=== PATIENT | female | born 1945 | race Caucasian/White ===

== ENCOUNTER 2020-01-01 13:00 | Outpatient (RCR) | payer MEDICARE, OTHER, SELFPAY ==
[2019-04-04 11:40] VITALS: BMI 24.0
--- NOTE | 2019-12-16 12:40 | HP.PTEVAL ---
Patient's Visit Information TABATHA DIAZ is a 74 year old F referred to Physical Therapy by Dr. Anaid Sullivan DC with a diagnosis of SEGMENTAL SOMATIC DYSFUNCTION OF LUMBA,FACET ARTHRITIS OF LUMBAR. Date of Evaluation: 12/16/19 Physical Therapist: Mervin Katz, PT, Cert MDT, OCS - Visit Plan Frequency: 2x /Week Duration: 4 Weeks Plan: PT INTERVENTIONS POSTURAL EX'S,DLS ABD/BACK,LUMBAR ROM,LE STRENGTRENING. TO DEVELOP HEP - Subjective This 74 y/o female presents to physical therapy with lumbar pain.Patient injuried back middle of September 29 lifting grill on deck. Then symptoms gradually got worse throughout the day. Seen Chiropractor . Symptoms located symmtrical lumbar today. Symptoms became worse in left leg and has some parathesia below left knee . Aggraveting factors walking ,standing,lifting and bending.Symptoms better with sitting and resting.Patient sleeping good. Bowel/bladder-. Coughing/sneezing -. Patient c/o of left lower leg parathesia.Patient back feels weak . Patient symptoms affects ADL's ,housewok tasks and function. Patient symptoms affects QOL. SOCIAL: . VOCATION: retired - Pain Bilateral Back Pain Intensity (Out of 10): 5 Pain Intensity Range: 10 - Objective POSTURE:mild foward posture. GAIT: reciprocal pattern mild foward posture slow brian. PALAPTION: tender paraspinals. NEURO: C/O parathesia tingling left lower leg ,reflexes L3-4,L4-5,L5-S1. LUMBAR ROM: flexion WFL,extension min loss,side glides min loss. FLEXABLITY: hams WFL. MUSCULAR ENDURANCE TESTING: poor unable to hold - Special Tests L/S Slump test left side: Negative L/S Slump test right side: Negative L/S Left Straight Leg Raise: Negative L/S Right Straight Leg Raise: Negative Lumbar Standing: Flexion - Mechanical Response: No effect Lumbar Standing: Flexion - Symptoms During Testing: No effect Lumbar Standing: Flexion - Symptoms After Testing: No effect Lumbar Standing: Extension - Mechanical Response: No effect Lumbar Standing: Extension - Symptoms During Testing: No effect Lumbar Standing: Extension - Symptoms After Testing: No effect Lumbar Standing: Right Side Glides - Mechanical Response: No effect Lumbar Standing: Right Side [place] - Symptoms During Testing: No effect Lumbar Standing: Right Side [place] - Symptoms After Testing: No effect Lumbar Standing: Left Side [place] - Mechanical Response: No effect Lumbar Standing: Left Side [place] - Symptoms During Testing: No effect Lumbar Standing: Left Side [place] - Symptoms After Testing: No effect - Goals Goal 1:: I with HEP Goal Time Frame: 4-6 Weeks Goal 2:: Decrease LBP by 50 % or > to improve function witj ADL's Goal Time Frame: 4-6 Weeks Goal 3:: Improve lumbar ROM for function of recovery Goal Time Frame: 4-6 Weeks Goal 4:: Patient to improve back owestry score by 5 points or> to improve function and QOL. Goal Time Frame: 4-6 Weeks Goal 5:: Patient able to walk and stand t perform ADLS' and hoisework tasks with min limitatons. Goal Time Frame: 4-6 Weeks - Rehabilitation Potential Physical Therapy Diagnosis: This patient has lumbar pain with radicular symptoms with weakness ,difficulty after flexion with weakness,pain with walking and standing affects ADLS' and decrease posture thus benifit from skilled PT Rehabilitation Potential: Good - Anticipated Interventions Patient/Client Instruction: Educate patient on: Condition, Plan of Care For the Purpose of:: To decrease pain, To improve nutrient delivery to tissue, To improve muscle performance and motor function, To increase tolerance to activity/condition/position, To improve ability of physical actions for home/community/work/leisure, To improve health of tissue, To decrease soft tissue restriction, To increase flexibility/ROM, To reduce risk of recurrence, To improve ability to perform tasks related to life management Therapeutic Exercise to Include: Strength training, Endurance training, Postural training, Flexibilty training, Active ROM, Dynamic Lumbar Stabilization For the Purpose of:: To decrease pain, To increase ROM, To improve muscle performance and motor function, To improve ability to perform ADL's, To increase tolerance to activity/condition/position, To improve performance and independence with ADL's, To improve ability of physical actions for home/community/work/leisure, To improve health of tissue, To decrease soft tissue restriction, To improve ability to perform tasks related to life management TENS: Yes IF ES: Yes Cryotherapy (ice pack, ice massage): Yes Thermo therapy (hot pack): Yes Ultrasound (thermal/non thermal): Yes For the Purpose of:: To decrease pain, To increase ROM, To improve nutrient delivery to tissue, To increase oxygenation perfusion, To improve health of tissue, To decrease soft tissue restriction Thank you for the opportunity to evaluate your patient. For Medicare and Medicare HMO plans, please review the plan of care and approve it. It will need to be FAXED BACK to us at [phone] for Medicare purposes. For Medicare only, by signing this I certify the plan of care. Please let me know if there are questions or concerns regarding this plan of care. Physician Signature: Date:
--- NOTE | 2020-03-04 09:49 | HP.PT.NRP ---
TABATHA DIAZ was seen in my office for initial evaluation on 12/16/19. The following Plan of Care was established for this patient: Initial Frequency: 2x /Week Initial Duration: 4 Weeks Patient/Client Instruction: Educate patient on: Condition, Plan of Care For the Purpose of:: To decrease pain, To improve nutrient delivery to tissue, To improve muscle performance and motor function, To increase tolerance to activity/condition/position, To improve ability of physical actions for home/community/work/leisure, To improve health of tissue, To decrease soft tissue restriction, To increase flexibility/ROM, To reduce risk of recurrence, To improve ability to perform tasks related to life management Therapeutic Exercise to Include: Strength training, Endurance training, Postural training, Flexibilty training, Active ROM, Dynamic Lumbar Stabilization For the Purpose of:: To decrease pain, To increase ROM, To improve muscle performance and motor function, To improve ability to perform ADL's, To increase tolerance to activity/condition/position, To improve performance and independence with ADL's, To improve ability of physical actions for home/community/work/leisure, To improve health of tissue, To decrease soft tissue restriction, To improve ability to perform tasks related to life management TENS: Yes IF ES: Yes Cryotherapy (ice pack, ice massage): Yes Thermo therapy (hot pack): Yes Ultrasound (thermal/non thermal): Yes For the Purpose of:: To decrease pain, To increase ROM, To improve nutrient delivery to tissue, To increase oxygenation perfusion, To improve health of tissue, To decrease soft tissue restriction This patient was last seen in our office . Pertinent comments regarding their Physical therapy will appear below: Patients seen for PT for back pain for HEP,THUS IS D/C At this point I will be discontinuing this patient from physical therapy. I would be happy to see this patient again in the future if found appropriate by the physician. Thank you! Mervin Katz, PT, Cert MDT, OCS
== END 2020-01-01 19:00 | disposition home or self-care (01) ==
LOC: PT 13:00
PROVIDERS: PCP Student in an Organized Health Care Education/Training Program; Referring Provider Chiropractor; Visit Provider Chiropractor
DX: M99.03 Segmental and somatic dysfunction of lumbar region (principal); M46.96 Unspecified inflammatory spondylopathy, lumbar region
CPT/HCPCS: 97035; 97110; 97162; 97530

== ENCOUNTER 2020-01-15 12:05 | Emergency (ER) | payer MEDICARE, OTHER, SELFPAY ==
[2019-04-04 11:40] VITALS: BMI 24.0
[2020-01-15] VITALS (7 sets, daily range): BP systolic 119–153; BP diastolic 61–88; PULSE 85–97; RESP 15–20; TEMP 36.1–36.7; O2SAT 95–99; BMI 24.7
--- NOTE | 2020-01-15 | FLU_PTH ---
PATIENT: TABATHA DIAZ LOC: ED U#:[id number] AGE/SX: 74/F ROOM: RE01/15/[address]: Dr. Vasquez Alas MD : 1945 BED: DIS: 01/15/2020 SPEC #: [id number] RECD: 01/15/20 14:57 STATUS: JARVIS REDotty #: [id number] DURGA: 01/15/20 00:[address]: Vasquez Alas DEPT: CYTOLOGY RECD BY: Luis F Gibbs ENTERED: 01/16/20 08:13 SP TYPE: Fluid OTHR DR: MD Dr. Hudson Orona, DO Tissues: THORACIC FLUID Procedures: Special Stain Group II Surgery Specimen Level IV Cytospin Fluid HEADER OPERATION: Ultrasound-guided right thoracentesis PRE-OP DIAGNOSIS: Cough, SOB TISSUE SUBMITTED: Thoracentesis fluid for cytology DIAGNOSIS CYTOLOGY Thoracentesis fluid for cytology (cytospins and cell block): Positive for malignant cells, consistent with breast primary. LEENA:enoc 01/17/20 COMMENT Immunohistochemistry ([id number]) supports the above diagnosis. . Please make reference to previous specimen ([id number]) left breast and axillary content, modified radical mastectomy with diagnosis of invasive poorly differentiated ductal carcinoma. Case has been reviewed in consultation with Dr. Buenrostro who concurs with the above diagnosis. IDC:SJ CYTOLOGY STUDY Slides are reviewed. CYTOLOGY GROSS Received is 70 ml of yellow cloudy fluid labeled with the patient's name and and designated per the requisition as thoracentesis. Submitted for cytology preparation including cell block. / Sariah 01/16/20 TC:0 CPT: 01531, 38671
--- NOTE | 2020-01-15 | IMM_PTH ---
PATIENT: TABATHA DIAZ LOC: ED U#:[id number] AGE/SX: 74/F ROOM: RE01/15/[address]: Dr. Vasquez Alas MD : 1945 BED: DIS: 01/15/2020 SPEC #: [id number] RECD: 01/17/20 09:44 STATUS: JARVIS REQ #: [id number] DURGA: 01/15/20 00:[address]: Vasquez Alas DEPT: IMMUNOHISTOCHEMISTRY RECD BY: Miya Rice ENTERED: 01/17/20 09:46 SP TYPE: IMMUNO OTHR DR: MD Dr. Hudson Orona, DO Tissues: THORACIC FLUID Procedures: RCC (add) NAPSIN A (add) Karthik Ret (add) CK20 (add) CK5-6 (add) CK7 (add) CK8 (add) SHAIKH-2 (add) E-CAD (add) HEP PAR (add) HER2 MARTINA (add) MACRO (add) MAMM (add) OH (add) TTF1 (add) Vimentin (add) Pankeratin (add) GATA3 (add) P40 (add) CDX2 (add) ER (initial) PHYSICIAN & INSTITUTION [place] [id number] SPECIMEN INFORMATION: Tissue Source: Thoracentesis fluid Clinical Info: CLIFTON Carreno Specimen Number: [id number] CPT code: 74407, 42559 x17, 75116 x3 METHODOLOGY: Deparaffinized sections of prefer/formalin-fixed tissue or PAP/DQ stained slides are incubated with monoclonal/polyclonal antibodies/oligonucleotide probes. Localization is made via biotin free immunoperoxidase method. Appropriate controls are performed and reacted as expected. Results on target cell population are indicated in the following table: RESULTS: ANTIBODY / CLONE RESULT ER (6F11) positive OH (1E2) negative Her-2neu (CB11) negative E-Cad (ECH-6) positive Mammaglobin (31A5) negative GATA3 (L50-823) positive AE1-3 (AE1/AE3/PCK26) positive CK7 (OV-TL12/30) positive CK8 (19wnbuA37) positive CK20 (KS20.8) negative SHAIKH-2 (SP21) positive CDX2 (TZU1861V) negative Vimentin (V9) negative Macro (HAM-56) negative TTF-1 (8G7G3/1) negative Napsin A (Rabbit Polyclonal) negative HepPar (OCh1E5) negative RCC (PN-15) negative CALRET (polyclonal) negative CK5-6 (D5 & 1684) negative P40 (BC28) negative These tests were developed and their performance characteristics determined by [facility]. They may not have been cleared or approved by the U.S. Food and Drug Administration. The FDA has determined that such clearance or approval is not necessary. The above immunohistochemical/dualISH markers are ordered and reviewed by the Pathologist. INTERPRETATION: Thoracentesis fluid: Metastatic carcinoma consistent with breast primary. AM:enoc 01/20/20
--- NOTE | 2020-01-15 12:23 | EKG12_ITS ---
Test Reason : Blood Pressure : / mmHG Vent. Rate : 089 BPM Atrial Rate : 089 BPM P-R Int : 126 ms QRS Dur : 072 ms QT Int : 372 ms P-R-T Axes : 053 042 027 degrees QTc Int : 452 ms Normal sinus rhythm Normal ECG Confirmed by TALI THOMAS, TICO ([id number]), scientific editor DORIS FLOREZ ([id number]) on 01/17/2020 1:58:57 PM Referred By: LINDA Confirmed By:NISREEN CESAR MD
--- NOTE | 2020-01-15 12:23 | RAD_ITS ---
STUDY: X-RAY CHEST REASON FOR EXAM: Female, 74 years old. COUGH, SOB TECHNIQUE: Single AP portable view of the chest. COMPARISON: None. FINDINGS: EKG electrodes are seen. Surgical clips are seen in the left axillary region. Prior left mastectomy. Moderate sized right pleural effusion with right basilar atelectasis and/or infiltration. Normal size heart. Normal mediastinum and landon. Normal visualized pulmonary arteries. There is atherosclerotic tortuosity of the aortic arch and descending thoracic aorta. Normal visualized thoracic spine. Normal visualized ribs, clavicles, and shoulders. There is no demonstrated abnormality of the visualized soft tissue structures of the upper abdomen. RAD/Chest 1 View (Portable) IMPRESSION: Moderate size right pleural effusion with right basilar atelectasis and/or infiltrate. Electronically Signed: Willi Du, at 13:24 EST , Service support ,
[2020-01-15 12:44] LABS: Absolute Lymphocyte Count 1.12 X10^3/uL (0.83-4.51); Absolute Neutrophil Count 4.6 X10^3/uL (2.0-7.7); Basophil# 0.03 X10^3/uL; Basophil% 0.5 % (0-1); Eosinophil# 0.06 X10^3/uL; Eosinophils% 0.9 % (0-5); Hematocrit 48.4 % (37-47); Hemoglobin 15.9 g/dL (12.0-15.0); Lymphocyte # 1.12 X10^3/ul (4.0); Lymphocyte % 17.3 % (19-41); Mean Corp Hgb Conc 32.9 g/dL (32-36); Mean Corpuscular Hgb 31.2 pg (27.0-32.0); Mean Corpuscular Volume 94.9 fL (81-99); Mean Platelet Vol. 9.3 fl (6.2-12.0); Monocyte% 9.3 % (0-10); NRBC Flagged by Analyzer 0 % (0-5); Neutrophil # 4.64 X10^3/uL (2.7-7.7); Neutrophil % 71.5 % (47-70); Platelet Count 354 K/mm3 (150-450); RBC Distribution Width CV 12.4 % (11.6-14.6); RBC Distribution Width SD 43.1 fl (35.1-43.9); White Blood Count 6.5 K/mm3 (4.4-11.0)
[2020-01-15 13:02] LABS: Anion Gap 8 (5-15); BUN 17 mg/dL (7-18); BUN/Creat Ratio 13.6 RATIO (10-20); Calcium,Total 9.8 mg/dL (8.5-10.1); Chloride 108 mmol/L (98-107); Creatinine, Serum 1.25 mg/dL (0.55-1.02); EST Glomerular Filtration Rate 45 mL/min (>60); Est Glom Filt Rate - Afr Amer 54 mL/min (>60); Estimated Creatinine Clearance 28.79 ml/min; Glucose 111 mg/dL (74-106); Potassium 3.9 mmol/L (3.5-5.1); Sodium Level 141 mmol/L (136-145)
[2020-01-15 13:05] LABS: D-Dimer Quantitative (DVT/PE) 1.55 FEU/ug/m (0.27-0.49)
--- NOTE | 2020-01-15 13:06 | CT_ITS ---
STUDY: CTA CHEST REASON FOR EXAM: Female, 74 years old. Worsening SOB and amp; cough x 3 weeks, prior left lumpectomy 8 years ago. RADIATION DOSAGE (If Supplied By Facility): CTDIvol = ( 5.16 ) mGy, DLP = ( 209.76 ) mGycm TECHNIQUE: The examination was performed with the intravenous administration of IV 75mL Isovue-370. Post-processing of the angiographic images was performed, with multiplanar reformation and 3D reconstruction. Individualized dose optimization techniques were used for this CT. COMPARISON: None. FINDINGS: Status post left mastectomy. Surgical clips are seen in the left axillary region. Normal enhancement of the main pulmonary artery and right and left pulmonary arteries. Normal enhancement of the bilateral peripheral pulmonary arteries. There is no demonstrated pulmonary embolism. Normal thoracic aorta and visualized great vessels. There is no demonstrated aortic dissection. Normal heart and pericardium. Normal mediastinum. Normal hilar regions. Normal visualized trachea and bronchi. Volume loss in the right hemithorax. Moderate sized right effusion with compressive atelectasis and volume loss in the right lower lobe. Minimal degree of left basilar atelectasis. Normal chest wall structures. There are degenerative changes of thoracic spine. Increased kyphosis. Mild loss of height of a lower dorsal vertebrae. Normal visualized upper abdomen. CT/CTA Chest W/WO Contrast IMPRESSION: Moderate sized right pleural effusion with compressive atelectasis and volume loss of the right lower lobe. No evidence of pulmonary embolism. Electronically Signed: Willi Du, at 13:43 EST , Service support ,
--- NOTE | 2020-01-15 14:11 | US_ITS ---
PROCEDURE: ULTRASOUND GUIDED THORACENTESIS. DATE: 01/15/2020.. INDICATION: Female, 74 years old. Right pleural effusion. PHYSICIAN: Willi Du M.D. PROCEDURE: The risks, benefits, and alternatives to the procedure were explained to the patient. The specific risks of bleeding, infection, and pneumothorax requiring chest tube insertion were discussed and accepted. Written informed consent was obtained. Ultrasonographic evaluation of the right lower pleural space was carried out. An adequate pocket was identified. The patient was placed in the sitting, upright position. The overlying skin was prepped and draped in sterile fashion. 1% lidocaine was administered subcutaneously for local anesthesia. Under ultrasound guidance, a 5French thoracentesis needle/catheter system was advanced into the right posterior lower pleural fluid collection. Approximately 1300 mL of venus-colored fluid was drained. The catheter was removed, and a sterile dressing was applied. A specimen was collected and sent to the laboratory for analysis, as requested by the referring clinician. The patient tolerated the procedure well. A chest x-ray was ordered. US/Thoracentesis W US IMPRESSION: Ultrasound-guided right thoracentesis. Electronically Signed: Willi Du, at 15:22 EST , Service support ,
[2020-01-15 14:13] LABS: ALB/GLOB Ratio 0.9 RATIO (0.9-2.4); Globulin 4.1 g/dL (2.2-4.2); LDH 247 U/L (84-246); Protein, Total 7.9 g/dL (6.4-8.2)
--- NOTE | 2020-01-15 14:30 | ED.VISSUMM ---
- ER Visit Summary Date of Service: 01/15/20 Chief Complaint: Shortness of breath History of Present Illness: The patient is a [address] Chand and Dr. Hoyt. She has a history of breast cancer in the distant past. Reports she has had increasing shortness of breath over the past 3 weeks. She has a cough is productive of a small amount of sputum. Reports her shortness of breath is mild currently and moderate with exertion. She denies any chest pain. No fever or chills. Patient does report that she was in contact with her granddaughter last week and tested positive for Covid. However, her symptoms regarding her cough actually seem to be improving rather than worsening. Physical Examination: Vitals: Stable. Afebrile. General: Well-nourished and well-developed. Head: Normocephalic atraumatic. Neck: Supple, no lymphadenopathy. No JVD. Nontender. Cardiovascular: Regular rate and rhythm. No murmurs. Respiratory: No respiratory distress. Clear to auscultation bilaterally. Abdominal: Soft, nontender, nondistended, normal bowel sounds. No guarding, rebound, or peritoneal signs. Back: Nontender. Extremities: Nontender, no edema. Skin: Normal color, no rash. Neurologic: Alert and oriented ?3. Cranial nerves II through XII are intact. Normal strength and sensation. Psych: Normal affect. Test Results: EKG is sinus at 89 with no acute changes. Troponin is negative. D-dimer is 1.55. 7 shows a chloride of 108, creatinine 1.25, glucose 111. CBC shows an H&H of 15.9 and 40.4, segmented for 72 lymphocytes of 17. COVID-19 is negative. Clinical Impression(s) from Imaging Studies Chest X-Ray 01/15/20 12:23 IMPRESSION: Moderate size right pleural effusion with right basilar atelectasis and/or infiltrate. Electronically Signed: Willi Du, at 13:24 EST , Service support , Chest CTA 01/15/20 13:06 IMPRESSION: Moderate sized right pleural effusion with compressive atelectasis and volume loss of the right lower lobe. No evidence of pulmonary embolism. Electronically Signed: Willi Du, at 13:43 EST , Service support , Emergency Department Course and Treatment: Patient had ultrasound-guided thoracentesis performed by Dr. Corona over in radiology. She is resting comfortably after this. The fluid was sent for evaluation. Treatment Plan: Patient will be discharged instructions follow-up Dr. Hoyt and/or Dr. Corona tomorrow for the results of her thoracentesis fluid. Return to the emergency department for any worsening symptoms. Disposition: To home in improved and stable condition. Impression: 1. Right pleural effusion. 2. Thoracentesis by radiologist. This note was generated with [employer] dictation software. It may contain incorrect words, spelling, and punctuation that were not noted in review of the chart prior to signing ED Disposition - Plan for ED Patient: Instructions: ED Pleural Effusion, Thoracentesis Referrals: Hudson Hoyt DO [Primary Care Provider] - 1 Day Dorian Corona DO [STAFF PHYSICIAN] - 1 Day
--- NOTE | 2020-01-15 14:48 | RAD_ITS ---
STUDY: X-RAY CHEST REASON FOR EXAM: Female, 74 years old. Immediate post thora TECHNIQUE: AP inspiration and expiration views. COMPARISON: Comparison is made with prior study done earlier today at 12:57 PM. FINDINGS: The patient is status post right thoracentesis. No evidence of pneumothorax. Residual right pleural parenchymal changes. RAD/Chest Insp/Exp 2 View IMPRESSION: Status post right thoracentesis. There is no evidence of pneumothorax. Residual right pleural parenchymal changes. Electronically Signed: Willi Du, at 15:10 EST , Service support ,
[2020-01-15 14:55] LABS: Cytology, Body Fluid / CSF SEE PATHOLOGY REPORT
[2020-01-15 15:46] LABS: Body Fluid Mononuclear WBC # 0.916 10^3/uL; Body Fluid Mononuclear WBC % 97.9 %; Body Fluid Polynuclear WBC # 0.019 10^3/uL; Body Fluid Polynuclear WBC % 2.1 %; Body Fluid Total Cells Counted 1.084 10^3/ul; White Blood Count/Body Fluid 0.935 10^3/uL
[2020-01-15] MEDS: Lidocaine 2% (20 ml mdv) 20 ML Vial (15:51)
[2020-01-15 15:52] LABS: Auto B Fluid Analyzer BKGD Ct COUNTS W/IN LIMITS (W/IN LIMITS); Source- Body Fluid THORACENTESIS
[2020-01-15 15:53] LABS: Appearance/Body Fluid SL CLDY; Color/Body Fluid YELLOW
[2020-01-15 16:28] LABS: Red Cell Count/Body Fluid 1070 /mm3
[2020-01-15 16:39] LABS: Glucose, Body Fluid 97 mg/dL (40-70); LDH,Body Fluid 228 Units/l (Not Establ.); Protein, Body Fluid 4.9 g/dL (Not Establ.)
[2020-01-15 16:54] LABS: Lymphocytes 9 %; Mesothelial Cells 74 %; Neutrophil (Segs) 1 %
[2020-01-15 17:05] LABS: Macrophages 13 %; Monocytes 3 %
[2020-01-15 17:08] LABS: Body Fluid QC Type(s) BF5Q
[2020-01-17 11:26] LABS: Pathologist Comment/Body Fluid Reviewed
[2020-01-20 04:15] LABS: pH, Body Fluid 11254 7.3 (Not Estab.)
== END 2020-01-15 15:52 | disposition home or self-care (01) ==
PROVIDERS: Emergency Provider Emergency Medicine; PCP Student in an Organized Health Care Education/Training Program
DX: J90 Pleural effusion, not elsewhere classified (principal); Z20.828 Contact with and (suspected) exposure to other viral communicable diseases; Z85.3 Personal history of malignant neoplasm of breast
CPT/HCPCS: 32555; 71045; 71046; 71275; 80048; 82945; 83615; 83986; 84156; 84157; 84484; 85025; 85379; 87070; 87075; 87205; 87426; 88108; 88305; 88313; 88341; 88342; 89050; 93005; 99284; Q9967; A4216

== ENCOUNTER → 2020-02-10 14:13 | Outpatient (CLI) | payer MEDICARE, OTHER, SELFPAY ==
--- NOTE | 2020-02-10 14:15 | US_ITS ---
PROCEDURE: ULTRASOUND GUIDED THORACENTESIS -- RIGHT SIDE CLINICAL HISTORY: Female, 74 years old. Right pleural effusion CONSENT: The risks, benefits and alternatives to the procedure were explained to the patient, and the patient agreed to the procedure and signed the consent. STERILE BARRIER TECHNIQUE: The following sterile barrier precautions were used during the procedure: hand hygiene; use of 2% chlorhexidine aseptic; use of a cap, mask, sterile gown, sterile gloves, sterile full body drape, and a large sterile sheet. SEDATION: Local anesthesia TECHNIQUE: Under the ultrasound guidance using all elements of maximum sterile technique and after infiltration of the skin and subcutaneous soft tissues with 10 mL of lidocaine 1% a 5 Dutch drainage catheter is introduced in the lower part of the right hemithorax. 1000 mL of fluid were removed sample sent to lab for evaluation. The patient tolerated the procedure there was no immediate complication. US/Thoracentesis W US IMPRESSION: Successful ultrasound-guided thoracentesis. Electronically Signed: Cristy Romo, at 11:14 EST Tel , Service support ,
[2020-02-10 14:35] VITALS: BP 115/55; BP 134/61; BP 139/69; BP 151/78; PULSE 87; PULSE 95; PULSE 96; PULSE 97; RESP 16; RESP 18; O2SAT 97; O2SAT 98; O2SAT 99
--- NOTE | 2020-02-10 14:35 | RAD_ITS ---
STUDY: X-RAY CHEST REASON FOR EXAM: Female, 74 years old. Immediate post thora TECHNIQUE: Single AP portable view of the chest. COMPARISON: None. FINDINGS: Compressive atelectasis in the right lung base. There is moderate size right pleural effusion. There is no evidence of pneumothorax. Normal size heart. Normal mediastinum and landon. Normal visualized pulmonary arteries. Normal visualized aortic arch and descending thoracic aorta. There is a levoscoliosis of the thoracic spine. Normal visualized ribs, clavicles, and shoulders. There is no demonstrated abnormality of the visualized soft tissue structures of the upper abdomen. RAD/Chest Insp/Exp 2 View IMPRESSION: There is moderate size right pleural effusion. There is no evidence of pneumothorax. Electronically Signed: Cristy Romo, at 15:47 EST Tel , Service support ,
== END ==
PROVIDERS: PCP Student in an Organized Health Care Education/Training Program; Referring Provider Nurse Practitioner; Visit Provider Nurse Practitioner
DX: J90 Pleural effusion, not elsewhere classified (principal)
CPT/HCPCS: 32555; 71046

== ENCOUNTER 2021-04-01 12:14 | Outpatient (CLI) | payer MEDICARE, OTHER, SELFPAY | END 2021-04-01 23:59 | disposition home or self-care (01) | PROVIDERS: PCP Student in an Organized Health Care Education/Training Program; Visit Provider Internal Medicine Hematology & Oncology | DX: C50.919 Malignant neoplasm of unspecified site of unspecified female breast (principal); C79.51 Secondary malignant neoplasm of bone ==

== ENCOUNTER → 2021-08-02 | Outpatient (CLI) | payer MEDICARE, OTHER, SELFPAY ==
[2021-08-02 13:24] LABS: ALB/GLOB Ratio 1.2 RATIO (0.9-2.4); AST(SGOT) 20 U/L (15-37); Alanine Aminotransfer ALT/SGPT 24 U/L (13-56); Albumin, Serum 3.7 g/dL (3.2-5.0); Alkaline Phosphatase 69 U/L (45-117); Anion Gap 5 (5-15); BUN 13 mg/dL (7-18); BUN/Creat Ratio 13.6 RATIO (10-20); Calcium,Total 9.4 mg/dL (8.5-10.1); Chloride 110 mmol/L (98-107); Creatinine, Serum 0.95 mg/dL (0.55-1.02); EST Glomerular Filtration Rate 61 mL/min (>60); Est Glom Filt Rate - Afr Amer 74 mL/min (>60); Globulin 3.2 g/dL (2.2-4.2); Glucose 92 mg/dL (74-106); Potassium 4.1 mmol/L (3.5-5.1); Protein, Total 6.9 g/dL (6.4-8.2); Sodium Level 142 mmol/L (136-145)
== END | disposition home or self-care (01) ==
LOC: LABSPEC 12:41
PROVIDERS: PCP Student in an Organized Health Care Education/Training Program; Referring Provider Internal Medicine Hematology & Oncology; Visit Provider Internal Medicine Hematology & Oncology
DX: C50.812 Malignant neoplasm of overlapping sites of left female breast (principal); C79.51 Secondary malignant neoplasm of bone; C50.012 Malignant neoplasm of nipple and areola, left female breast; J91.0 Malignant pleural effusion; Z17.0 Estrogen receptor positive status [ER+]
CPT/HCPCS: 80053

== ENCOUNTER → 2024-03-04 | Outpatient (CLI) | payer MEDICARE, OTHER, SELFPAY | END | disposition home or self-care (01) | PROVIDERS: PCP Student in an Organized Health Care Education/Training Program; Referring Provider Emergency Medicine; Visit Provider Emergency Medicine | DX: R35.0 Frequency of micturition (principal); R30.0 Dysuria; R53.83 Other fatigue | CPT/HCPCS: 87077; 87086; 87088; 87186 ==